=== PATIENT | male | born 1955 | race Caucasian/White ===

== ENCOUNTER 2016-11-27 05:12 | Inpatient (IN) | payer OTHER ==
[2016-10-28 10:17] VITALS: BMI 39.0
--- NOTE | 2016-10-28 10:53 | PAT Medication Instructions ---
Service Date October 28, 2016. Current Home Medication List Amlodipine (Norvasc), 5 MG PO QAM Aspirin (Aspirin Ec), 81 MG PO QAM Clopidogrel (Plavix), 75 MG PO QAM Hydrochlorothiazide (Hctz), 50 MG PO QAM Lisinopril (Zestril), 40 MG PO QAM Rosuvastatin Calcium (Rosuvastatin Calcium), 1 TAB PO QAM Medication Instructions For Your Scheduled Surgery - Check with surgeon/prescribing physician for instructions: Clopidogrel (Plavix), 75 MG PO QAM - Hold the following medications the morning of surgery: Lisinopril (Zestril), 40 MG PO QAM Hydrochlorothiazide (Hctz), 50 MG PO QAM - Take the following medications the morning of surgery with a sip of water: Rosuvastatin Calcium (Rosuvastatin Calcium), 1 TAB PO QAM Amlodipine (Norvasc), 5 MG PO QAM Aspirin (Aspirin Ec), 81 MG PO QAM (okay to continue per surgeon) If you have any questions please call us at [phone] (Shu Khoury PA-C) or [phone] or [phone]
[2016-10-28 11:16] LABS: BASO % 0.3 %; BASO ABS # 0.02 K/uL (0-0.2); COMPLETE YES; EOS % 0.6 %; HEMATOCRIT 50.7 % (42-52); IG% 0.3 %; LYMPH % 31.2 %; MEAN CELL VOLUME 87.3 fL (80-100); MEAN CORPUSCULAR HEMOGLOBIN 30.3 pg (25-34); MEAN CORPUSCULAR HGB CONC 34.7 g/dl (32-36); MEAN PLATELET VOLUME 9.4 fL (7.4-10.4); MONO % 13.6 %; PLATELET COUNT 180 K/uL (130-400); RED BLOOD COUNT 5.81 M/uL (4.7-6.1); WHITE BLOOD COUNT 6.41 K/uL (4.8-10.8)
[2016-10-28 11:26] LABS: INR 1.1 (0.9-1.1); PROTHROMBIN TIME (PATIENT) 11.7 SECONDS (9.0-12.0)
[2016-10-28 13:37] LABS: BLOOD UREA NITROGEN 17 mg/dl (7-18); BUN/CREATININE RATIO 20.1 (10-20); C-REACTIVE PROTEIN < 0.29 mg/dl (0-0.29); CALCIUM 9.3 mg/dl (8.5-10.1); CARBON DIOXIDE 28 mmol/L (21-32); CHLORIDE 103 mmol/L (98-107); CREATININE 0.86 mg/dl (0.60-1.40); GLUCOSE 74 mg/dl (70-99); SODIUM 140 mmol/L (136-145)
--- NOTE | 2016-11-21 21:31 | HISTORY & PHYSICAL EXAMINATION ---
DATE OF ADMISSION: 11/27/2016 CHIEF COMPLAINT: Right hip and leg pain. HISTORY OF PRESENT ILLNESS: The patient is a 61-year-old gentleman who is now a little over 8 months out from a left knee replacement. Left knee is doing pretty well. No pain, but a little on the stiff side but happy with that. He is becoming more and more debilitated by his right leg pain. He describes pain in his thigh, groin and entire leg area. The more he walks, the more it hurts. He limps and limps more as the day goes on. He has difficulty putting his shoes and socks on. X-rays show hip arthritis and patient would like to proceed with total hip replacement. PAST MEDICAL HISTORY: Significant for: 1. Hypertension. 2. Elevated cholesterol. 3. History of TIA 2 years ago, on Plavix. PAST SURGICAL HISTORY: Include knee replacement on 03/10/2016. ALLERGIES: None. CURRENT MEDICINES: Include: 1. Hydrochlorothiazide 50 mg a day. 2. Amlodipine 5 mg a day. 3. Plavix 75 mg a day. 4. Lisinopril 40 mg a day. 5. Baby aspirin 81 mg a day. SOCIAL HISTORY: A 61-year-old male. He is . He is a carmichael. He does not smoke. FAMILY HISTORY: Noncontributory. REVIEW OF SYSTEMS: Negative for diabetes. Denies any chest pain, shortness of breath. No history of DVT or PE. He does have a history of a TIA without any residual sequelae. He is on Plavix. PHYSICAL EXAMINATION: GENERAL: Reveals a healthy, pleasant middle-aged male. Fairly large gentleman. HEENT: Benign. NECK: Supple. No lymphadenopathy. LUNGS: Clear to auscultation. HEART: Has a regular rate and rhythm. ABDOMEN: Soft, nontender, nondistended. EXTREMITIES: Grossly neurovascularly intact except as follows: Examination of the right hip revealed patient to walks with a slight bit a limp on his right side. His hip is very stiff. He has got pain with any type of hip motion. With any hip motion, his pelvis rocks. He has got a small knee effusion on this side. Range of motion of his knee is 5-110. No instability. Negative straight leg raise. X-RAYS: X-rays of the right hip and knee reveal advanced right hip arthritis. He has got near complete loss of the superior joint space. He does have advanced medial compartment DJD of the knee as well. 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 I think the majority of symptoms are coming from his hip more so than his knee at this point. PLAN: We talked about treatment. He would like to proceed with hip replacement surgery. We are going to take him to the operating room and do a right total hip replacement. The risks and benefits of this procedure were explained to the patient including but not limited to DVT, PE, , infection, neurological injury, vascular injury, bleeding, pain, limited range of motion, stiffness, failure to relieve symptoms, incomplete relief of symptoms, need for further surgery in the future, fracture, leg length inequality, nerve palsy, and need for further surgery on his knee. The patient understands and desires to proceed. Informed consent was obtained. We did talk to him about holding his lisinopril the morning of surgery and the Plavix 1 week preop. We will use Plavix for DVT prophylaxis. I will see him back 2 weeks postop. As far as discharge plans, he is planning to be discharged to home using [facility] home health program. SHARRI
[~2016-11-27] VITALS: Ht 172.7 cm; Wt 116.3 kg
[2016-11-27] VITALS (24 sets, daily range): BP systolic 102–173; BP diastolic 66–97; PULSE 54–75; TEMP 36.3–37.3; O2SAT 93–99; Ht 172.7 cm; Wt 116.3 kg
[~2016-11-27 05:12] MED LIST: AMLO-110 PO; ASPI81TA28 PO; CLOP1TAB15 PO; HYDR50TA3 PO; LISI40TA PO; ROSU20TA22 PO
[2016-11-27] MEDS ORDERED: METOCLOPRAMIDE HCL 10 MG TAB PO SCH (06:00)
[2016-11-27] MEDS ORDERED: LACTATED RINGER'S 1000ML 1,000 ML IV SCH (06:00)
[2016-11-27] MEDS ORDERED: SCOPOLAMINE 1.5 MG TDSY TD SCH (06:00)
[2016-11-27] MEDS ORDERED: GABAPENTIN 300 MG CAP PO SCH (06:00)
[2016-11-27] MEDS ORDERED: ACETAMINOPHEN 500 MG TAB PO SCH (06:00)
[2016-11-27] MEDS ORDERED: FAMOTIDINE 20 MG TAB PO SCH (06:00)
[2016-11-27] MEDS ORDERED: LACTATED RINGER'S 1000ML 500 ML IV ONE (06:00)
[2016-11-27] MEDS ORDERED: LACTATED RINGER'S 1000ML IV SCH (06:00)
[2016-11-27] MEDS ORDERED: BACITRACIN 50000 UNIT VIAL ONE (06:32)
[2016-11-27] MEDS ORDERED: BUPIVACAINE/EPINEPHRINE 0.5% MPF 1:200,000 30 ML VIAL ONE (06:32)
[2016-11-27] MEDS ORDERED: MoRPHine SULFATE PF 1 MG/ML 10 ML AMP/VIAL ONE (06:38)
[2016-11-27] MEDS ORDERED: FENTANYL CITRATE INJ 50 MCG/1 ML 2 ML VIAL ONE (06:38)
[2016-11-27] MEDS ORDERED: MIDAZOLAM HCL 1 MG/ML 2ML VIAL ONE (06:38)
[2016-11-27] MEDS: TRANEXAMIC ACID INJ 1,000 MG in SODIUM CHLORIDE 0.9% 100ML 100 ML IV SCH ×2 (06:38→06:51)
[2016-11-27] MEDS ORDERED: BUPIVACAINE 0.5 % 5 MG/1 ML PF 10ML VIAL ONE (06:40)
--- NOTE | 2016-11-27 06:48 | History & Physical Bridge Note ---
H&P Re-Evaluation Bridge Note: I have examined the patient, reviewed the History & Physical and in the interval since the performance of the History & Physical I have noted the following changes of clinical significance: No changes noted
[2016-11-27] MEDS: CEFAZOLIN 2000 MG/60 ML D5W 60 ML IV SCH ×2 (06:53→07:33)
[2016-11-27] MEDS ORDERED: MEPERIDINE HCL 25 MG/ML CARP IV PRN (07:00)
[2016-11-27] MEDS ORDERED: NALOXONE HCL INJ 1 MG in SODIUM CHLORIDE 0.9% 1000ML 1,000 ML IV PRN (07:00)
[2016-11-27] MEDS ORDERED: SODIUM CHLORIDE 0.9% 1000ML 1,000 ML IV PRN (07:00)
[2016-11-27] MEDS ORDERED: NALOXONE HCL INJ 0.08 MG in SYRINGE 1.8 ML IV PRN (07:00)
[2016-11-27] MEDS ORDERED: DiphenhydrAMINE HCL 50 MG/ML VIAL IV PRN (07:00)
[2016-11-27] MEDS ORDERED: ATROPINE SULFATE 0.1 MG/ML 5ML SYR IV PRN (07:00)
[2016-11-27] MEDS ORDERED: NALOXONE HCL 0.4 MG/1 ML VIAL/CARP IV PRN (07:00)
[2016-11-27] MEDS ORDERED: ONDANSETRON INJ 2 MG/ML 2 ML VIAL IV PRN ×2 (07:00)
[2016-11-27] MEDS ORDERED: EpHEDrine SULFATE INJ 50 MG/ML AMP IV PRN ×2 (07:00)
[2016-11-27] MEDS ORDERED: NO NARCOTICS OR SEDATIVES SCH (07:00)
[2016-11-27] MEDS ORDERED: FENTANYL CITRATE INJ 50 MCG/1 ML 2 ML VIAL IV PRN (07:00)
[2016-11-27] MEDS ORDERED: NALBUPHINE HCL INJ 10 MG/ML AMP IV PRN (07:00)
[2016-11-27] MEDS ORDERED: LACTATED RINGER'S 1000ML 500 ML IV PRN (07:00)
[2016-11-27] MEDS ORDERED: MoRPHine SULFATE PF 1 MG/ML 10 ML AMP/VIAL EPI PRN (07:00)
[2016-11-27] MEDS ORDERED: PROPOFOL IV EMULSION 10 MG/ML 20 ML VIAL IV ONE (07:29)
[2016-11-27] MEDS ORDERED: PHENYLEPHRINE HCL INJ 10 MG/ML VIAL ONE (07:29)
[2016-11-27] MEDS ORDERED: EpHEDrine SULFATE 50MG/5ML SYR ONE (07:29)
--- NOTE | 2016-11-27 08:39 | [facility] Post Operative Brief Note ---
Immediate Operative Summary Operative Date Nov 27, 2016. Pre-Operative Diagnosis Right Hip Advanced Degenerative Joint Disease Post-Operative Diagnosis Right Hip Advanced Degenerative Joint Disease Procedure(s) Performed Right Total Hip Arthroplasty--Uncemented Surgeon Dr. Nolan Schedule [facility]anger Surgeon(s) WES Ruth Estimated Blood Loss 400 ml Findings Right Hip DJD Fluids (cc crystalloids) 2000 cc Specimens A. Right Femoral Head Drains None Anesthesia Spinal Complication(s) None Disposition Recovery Room / PACU
[2016-11-27] MEDS ORDERED: ALUMINUM/MAGNESIUM/SIMETH (MAALOX MAX) 30 ML UDC PO PRN (08:45)
[2016-11-27] MEDS ORDERED: BISACODYL 10 MG SUPP PR PRN (08:45)
[2016-11-27] MEDS ORDERED: TAMSULOSIN HCL 0.4 MG CAP PO PRN (08:45)
[2016-11-27] MEDS ORDERED: MAGNESIUM HYDROXIDE SUSP 30 ML UDC PO PRN (08:45)
[2016-11-27] MEDS ORDERED: SILVER SULFADIAZINE 1% CR 50 GM JAR EXT PRN (08:45)
[2016-11-27] MEDS ORDERED: CLOPIDOGREL BISULFATE 75 MG TAB PO SCH (09:00)
--- NOTE | 2016-11-27 09:18 | OPERATIVE REPORT ---
DATE OF OPERATION: 11/27/2016 PREOPERATIVE DIAGNOSIS: Right hip degenerative joint disease. POSTOPERATIVE DIAGNOSIS: Same. PROCEDURE PERFORMED: Right uncemented ceramic on highly cross-linked polyethylene total hip arthroplasty. SURGEON: Dr. Mateo Nolan. SERVICE OFFICER: Rubens Horowitz PA-C. COMPLICATIONS: None. ESTIMATED BLOOD LOSS: 400 mL. FLUID REPLACEMENT: 2000 mL crystalloid fluid replacement. ANESTHESIA: Spinal. DRAINS: None. SPECIMENS: Right femoral head sent for pathology. OPERATIVE INDICATIONS: The patient is a 61-year-old gentleman with a long history of multiple joint aches and pains. He underwent a left knee replacement back in February. Since then he has been more disabled by groin and thigh pain on his right side. He also has chronic back pain as well as advanced right knee arthritis. Interestingly he does not have much pain from his knee arthritis. It was felt that a significant amount of pain was coming from his hip. He elected to proceed with total hip arthroplasty. OPERATIVE FINDINGS: Operative findings revealed advanced right hip DJD. He had pretty extensive grade 4 changes of the femoral head and acetabulum. Small hip joint effusion. He had deficiency of the anterior wall of the acetabulum. OPERATIVE IMPLANTS: Operative implants consisted of: 1. A Biomet G7 size 56 mm acetabular shell. 2. An apex hole eliminator. 3. A 6.5 cancellous acetabular screws, 1 at 35 mm in length and 1 of 30 mm in length. 4. Highly cross-linked polyethylene liner with a 56 mm outer diameter, 36 mm inner diameter with zaragoza placed inferior and posterior. 5. A DePuy size 13.5 small stature AML femoral stem. 6. A +5/36 mm ceramic articular ball. OPERATIVE PROCEDURE: The patient taken to the operating room, identified and placed on the operating table in supine position. All contact areas were appropriately padded. IV antibiotics were provided by the anesthesia team. A spinal anesthetic had been implemented in the holding area. Rm catheter was placed in sterile fashion. The patient was then placed in the left lateral decubitus position. An axillary roll was placed. Stlberg hip positioner was used for positioning. Right hip and leg were then prepped and draped in the usual sterile fashion. A posterolateral approach to the right hip was then performed through a curvilinear incision centered over the greater trochanter. Sharp dissection was carried down through the subcutaneous tissue down to the level of the IT band and gluteal fascia. The IT band and gluteal fascia were then incised longitudinally in line with skin incision. The underlying greater trochanteric bursa was excised. The piriformis and external rotators were tagged and taken off the posterior aspect of the femur. Great care was taken throughout the procedure to protect the sciatic nerve at all times. The hip was internally rotated and dislocated. Femoral neck osteotomy cut was made with the final cut 9 mm above the lesser trochanter. Femoral head was removed and sent for pathology. The femur was retracted anteriorly. Attention was then drawn to the acetabulum. The acetabulum labrum was excised. The pulvinar fat was excised. He did have some deficiency of the anterior wall of the acetabulum which made retraction a little bit difficult. The reaming of the acetabulum was then performed beginning with a size 49 progressing up to 55. A 56 mm Biomet G7 acetabular shell was then placed in about 40 degrees of lateral opening and 20 degrees of anteversion. It was fixed with two 6.5 cancellous acetabular screws. A trial liner was placed. Attention was then drawn to the femur. The proximal femur was entered with a cookie cutter followed by canal finder and lateralizing reamer. Sequential reaming of the femur was then performed beginning with a size 10 and progressing up to a 13. We got pretty good chatter at 13. We broached beginning with a size 10.5 small and progressing up to 13.5 small. His cancellous bone with very strong and supported. It was ensured that I could get the large broach in so we elected to stick with a small. We then trialed the hip. The +5 articular ball provided full stability in full extension and external rotation and flexion to 90 degrees, internal rotation to [address] a zaragoza very inferior and posterior to maximize stability in flexion. Attention was then drawn toward placement of permanent components. All trial components were removed. An apex hole eliminator was placed. A highly cross-linked polyethylene liner with a zaragoza placed inferior and posterior were placed. A 13.5 small stature AML femoral stem was placed. We got a good 6-7 cm of scratch fit. A +5/36 mm ceramic articular ball was placed. Hip was located and once again found to be stable. The wound was irrigated with copious amounts of pulsatile lavage solution. I did inject locally with 60 mL of 0.5% Marcaine with epinephrine. The posterior capsule and external rotators were repaired through drill holes in the posterior trochanter with #2 Ti-Cron suture. The IT band and gluteal fascia were then closed with #1 PDS suture in running fashion. The subcutaneous tissues were then closed in 2 layers with the deep layer #1 Vicryl suture and subcutaneous tissues with 2-0 Dexon suture in a buried interrupted fashion. The skin was closed with skin ronna. Leg was then cleaned and dried and a sterile dressing of Xeroform, 4 x 4, sterile ABD pad and foam tape was applied. The patient then transferred to the recovery room in stable condition. The patient tolerated the procedure well with no complications. All needle and sponge counts were correct at the end of the operation. I attest to the content of the Intraoperative Record and any orders documented therein. Any exception s are noted below.
--- NOTE | 2016-11-27 09:31 | Anesthesiology Progress Note ---
Anesthesia Post Op Note Date & Time Nov 27, 2016 at 09:30 Vital Signs Pain Intensity: 0 Vital Signs Past 12 Hours Date Time Temp Pulse Resp B/P (MAP) Pulse Ox O2 Delivery O2 Flow Rate FiO2 11/27/16 09:05 72 17 100 11/27/16 09:05 36.9 70 17 11/27/16 09:02 124/69 11/27/16 09:00 62 16 100 11/27/16 09:00 61 16 11/27/16 08:57 128/61 11/27/16 08:55 65 15 99 11/27/16 08:55 65 15 11/27/16 08:52 112/68 11/27/16 08:50 65 18 100 11/27/16 08:50 65 18 11/27/16 08:47 125/70 11/27/16 08:45 72 21 11/27/16 08:45 72 21 98 11/27/16 08:44 124/68 11/27/16 08:35 36.4 78 16 120/65 98 Mask 3 11/27/16 05:48 37.3 59 18 173/97 96 Room Air Notes Mental Status: alert / awake / arousable, participated in evaluation Pt Amnestic to Procedure: Yes Nausea / Vomiting: adequately controlled Pain: adequately controlled Airway Patency, RR, SpO2: stable & adequate BP & HR: stable & adequate Hydration State: stable & adequate Neuraxial Anesthesia: was administered, sensory block is resolving Anesthetic Complications: no major complications apparent
--- NOTE | 2016-11-27 09:43 | DIAGNOSTIC IMAGING REPORT ---
AP PELVIS AND RIGHT HIP 3 VIEWS CLINICAL HISTORY: Degenerative arthritis. Postoperative study COMPARISON STUDY: No previous studies for comparison. FINDINGS: There are postsurgical changes of a total right hip arthroplasty. No acute fractures or dislocations are visualized. Overlying skin ronna are evident. Air within soft tissues is consistent with recent surgery. IMPRESSION: Postsurgical changes of a total right hip arthroplasty. Electronically signed by: Shalom Ames M.D. 11/27/2016 9:41 AM Dictated Date/Time: 11/27/2016 9:41 AM
[2016-11-27] MEDS ORDERED: LISINOPRIL 40 MG TAB PO SCH (11:30)
[2016-11-27] MEDS: D5W AND 1/2NSS + 20MEQ KCL 1,000 ML IV SCH ×2 (11:32→17:57)
[2016-11-27] MEDS: ROSUVASTATIN CALCIUM 20 MG TAB PO SCH (13:39)
[2016-11-27] MEDS: ASPIRIN 81 MG ECTAB PO SCH (13:39)
[2016-11-27] MEDS: DOCUSATE SODIUM 100 MG CAP PO SCH ×2 (13:40→20:51)
[2016-11-27] MEDS: MULTIVITAMIN TAB PO SCH (13:41)
[2016-11-27] MEDS: AMLODIPINE BESYLATE 5 MG TAB PO SCH (13:41)
[2016-11-27] MEDS: KETOROLAC TROMETHAMINE 30 MG/ML VIAL IV. SCH ×2 (13:43→17:57)
[2016-11-27] MEDS: FERROUS GLUCONATE 324 MG TAB PO SCH ×2 (13:43→17:56)
[2016-11-27] MEDS: HYDROCHLOROTHIAZIDE 50 MG TAB PO SCH (13:44)
[2016-11-27] MEDS: ACETAMINOPHEN 500 MG TAB PO SCH ×2 (13:46→21:43)
[2016-11-27] MEDS: PANTOprazole SOD 40 MG TAB PO SCH (13:48)
--- NOTE | 2016-11-27 14:00 | PROGRESS NOTE ---
DATE: 11/27/2016 SUBJECTIVE: A 61-year-old gentleman postop from a right total hip replacement. He is doing well. Not having any pain yet. No chest pain or shortness of breath. Not feeling dizzy or lightheaded. OBJECTIVE: VITAL SIGNS: Temperature 36.6. Vital signs stable. GENERAL: Reveals a pleasant, middle-aged male. He is sitting up in bed, looks comfortable. LUNGS: Clear to auscultation. HEART: Has regular rate and rhythm. ABDOMEN: Soft, nontender, nondistended. EXTREMITIES: Grossly neurovascularly intact except as follows: Examination of the right leg reveals the leg to be well aligned. Dressing is clean, dry and intact. Thigh is soft and supple. His hip is located. He is neurologically intact. He can dorsiflex and plantarflex his foot appropriately. X-RAYS: X-rays of the right hip from recovery room reviewed. It shows a right uncemented total hip arthroplasty. Components looked to be in good position. No signs of problems. ASSESSMENT: A 61-year-old gentleman postop from a right total hip replacement, doing well. His pain is controlled. Hip is located. He is neurologically intact. PLAN: 1. DVT prophylaxis including thigh-high TEDs, SCDs, and aspirin twice a day. 2. PT/OT. Weightbearing as tolerated. Right total knee protocol. 3. Pain control. Doing well with current pain regimen. 4. IV antibiotics x24 hours. 5. Disposition: Plan to discharge to home with some home health once adequately recovered.
[2016-11-27] MEDS: CHECK SCOPOLAMINE PATCH PLACEMENT SCH (15:30)
[2016-11-27] MEDS: CEFAZOLIN IV 2,000 MG in DEXTROSE 5% 50ML 50 ML IV SCH (15:37)
[2016-11-28] VITALS (11 sets, daily range): BP systolic 99–124; BP diastolic 62–81; PULSE 32–69; TEMP 36.5–36.8; O2SAT 96–99
[2016-11-28] MEDS: KETOROLAC TROMETHAMINE 30 MG/ML VIAL IV. SCH ×2 (00:14→05:45)
[2016-11-28] MEDS: CEFAZOLIN IV 2,000 MG in DEXTROSE 5% 50ML 50 ML IV SCH (00:14)
[2016-11-28] MEDS: D5W AND 1/2NSS + 20MEQ KCL 1,000 ML IV SCH ×2 (00:15→08:53)
[2016-11-28] MEDS: CHECK SCOPOLAMINE PATCH PLACEMENT SCH ×4 (00:15→23:53)
[2016-11-28] MEDS ORDERED: MoRPHine SULFATE 2 MG/ML CARP IV PRN (01:00)
[2016-11-28] MEDS ORDERED: METOCLOPRAMIDE HCL INJ 5 MG/ML 2 ML VIAL IV PRN (01:00)
[2016-11-28] MEDS ORDERED: DiphenhydrAMINE HCL 50 MG/ML VIAL IV PRN (01:00)
[2016-11-28] MEDS ORDERED: DC INTRASPINAL MORPHINE ONE (01:00)
[2016-11-28] MEDS ORDERED: ZOLPIDEM TARTRATE 5 MG TAB PO PRN (01:00)
[2016-11-28] MEDS: ACETAMINOPHEN 500 MG TAB PO SCH ×3 (05:46→21:36)
[2016-11-28 05:54] LABS: BASO % 0.2 %; BASO ABS # 0.02 K/uL (0-0.2); COMPLETE YES; EOS % 0.7 %; HEMATOCRIT 34.7 % (42-52); IG% 0.4 %; LYMPH % 18.1 %; LYMPH ABS # 1.48 K/uL (1.2-3.4); MEAN CELL VOLUME 89.2 fL (80-100); MEAN CORPUSCULAR HEMOGLOBIN 30.1 pg (25-34); MEAN CORPUSCULAR HGB CONC 33.7 g/dl (32-36); MEAN PLATELET VOLUME 9.3 fL (7.4-10.4); MONO % 13.6 %; PLATELET COUNT 124 K/uL (130-400); RED BLOOD COUNT 3.89 M/uL (4.7-6.1); WHITE BLOOD COUNT 8.17 K/uL (4.8-10.8)
[2016-11-28 06:23] LABS: BUN/CREATININE RATIO 20.9 (10-20); CALCIUM 7.4 mg/dl (8.5-10.1); CREATININE 1.3 mg/dl (0.60-1.40); POTASSIUM 3.6 mmol/L (3.5-5.1)
[2016-11-28] MEDS ORDERED: OXYC-57 PO (08:19)
--- NOTE | 2016-11-28 08:21 | Discharge Instructions ---
Discharge Instructions Date of Service Nov 28, 2016. Admission Reason for Admission: Right Hip Degenerative Joint Disease Discharge Discharge Diagnosis / Problem: Right Hip Replacement Discharge Goals Goal(s): Decrease discomfort, Improve function, Increase independence, Improve disease control, Therapeutic intervention Activity Recommendations Activity Limitations: per Instructions/Follow-up section (Total Hip PRecautions ) Weightbearing Status: Right weightbearing . Instructions / Follow-Up Instructions / Follow-Up ACTIVITY RECOMMENDATIONS: Physical Therapy: * Aggressive physical therapy is not usually needed. You will learn to take care of yourself safely and walk. * Follow the "Hip Precautions Instructions." * In some cases, the social worker school at the hospital will arrange to have a therapist come to your house for the first couple of weeks to help you learn these skills. * You need to practice on your own or with the help of a family member as needed. * When you learn these skills, most of the therapy can be done on your own. Home Exercise: * You were shown a series of exercises in the hospital. Do these exercises three to four times each day including the exercises you were shown in physical therapy. Walking: * Get up and walk several times each day. For the first four weeks, try not to stand or walk for more than one hour at a time. If you do stand or walk for more than one hour, you will not hurt anything, but your leg will likely swell. * As you feel comfortable, you may change from the walker or crutches to a cane and then to independent walking. MEDICATIONS: New Medicine: * You will likely be taking one or more of these medicines: 1. Percocet - Take, as directed, when you need it, every four to six hours to control your pain. 2. Plavix - Thins your blood to lessen the chance of forming a blood clot. * The most common side effects of pain medicine and iron are nausea and constipation. If nausea or constipation is too much of a problem or if you have any questions about your new medicines or doses, call [facility] at . We will try to help you manage these issues. VERY IMPORTANT TO READ AND REVIEW" Pain: * The immediate post-operative period after hip replacement surgery is often quite painful. * You are given a prescription for pain medicine. You should take it, as directed, when you need it, especially before physical therapy and before going to bed. Pain that interferes with sleep is very common and can last several months. * You will likely need pain medicine for the first two to four weeks. It will not stop all of the pain. The pain will lessen and as you feel better, you may change to milder pain medicine such as Tylenol. * The most common side effects of pain medicine are nausea and constipation, so don't take more than you need. SPECIAL CARE INSTRUCTIONS: TEDs/Elastic Stockings: * The white elastic stockings help limit swelling and prevent blood clots from forming in your legs. The more you wear them, the more they work. * Wear them for six weeks. Prevention of Infection: * Take antibiotics one hour before any dental cleaning, dental work, urological procedure, gastrointestinal procedure or any invasive surgery in order to prevent your new joint from getting infected. * You may get the antibiotics from the doctor performing the procedure or you may call our office at before and we will call in a prescription to the pharmacy of your choice. Things to Watch For: * Drainage from the incision site that occurs more than one week after your surgery. * Severely increased leg pain or swelling. * Increased redness at the incision site. * Fever above 102 degrees Fahrenheit. * Unusual chest pain or shortness of breath. * Unusual pain or burning with urination. Call [facility] at with any of the above problems or if you have any questions about your medicines or recovery. FOLLOW UP VISIT: Make an appointment to see your doctor for approximately two weeks after surgery for a progress check and staple removal by calling the office at . Current Hospital Diet Patient's current hospital diet: Regular Diet Discharge Diet Recommended Diet: Regular Diet Procedures Procedures Performed: Right Total Hip Arthroplasty--Uncemented Pending Studies Studies pending at discharge: no Medical Emergencies . Who to Call and When: Medical Emergencies: If at any time you feel your situation is an emergency, please call [phone] immediately. . Non-Emergent Contact Non-Emergency issues call your: Surgeon . "Provider Documentation" section prepared by Mateo Nolan. . VTE Core Measure Inpt VTE Proph given/why not?: Other Anticoagulation, T.E.D. Stockings, SCD's
--- NOTE | 2016-11-28 08:36 | PROGRESS NOTE ---
DATE: 11/28/2016 SUBJECTIVE: A 61-year-old gentleman postop day #1 from right total hip replacement. He is doing well. He denies any significant pain. No chest pain or shortness of breath. Not feeling dizzy or lightheaded. OBJECTIVE: VITAL SIGNS: Temperature 36.5. Vital signs stable. GENERAL: Reveals a pleasant, middle-aged male. He is sitting up in bed, looks pretty comfortable. LUNGS: Clear to auscultation. HEART: Has a regular rate and rhythm. ABDOMEN: Soft, nontender, nondistended. EXTREMITIES: Grossly neurovascularly intact except as follows: Examination of the right leg reveals the leg to be well aligned. Dressing is clean, dry and intact. Thigh is soft and supple. He can dorsiflex and plantarflex his foot appropriately. He is neurologically intact. LABORATORY DATA: Hemoglobin 11.7, hematocrit 34.7. Electrolytes are stable. ASSESSMENT: A 61-year-old gentleman postop day #1 from a right total hip replacement, doing pretty well. His pain is controlled. Hip is located. He is neurologically intact. PLAN: 1. DVT prophylaxis including thigh-high TEDs, SCDs, and he is back on his Plavix starting today. We will also put him on a baby aspirin which he was on previously. 2. PT/OT. Weightbearing as tolerated. Right total hip protocol. 3. Pain control. He is doing quite well for current pain regimen. 4. Disposition: Plan to discharge to home with some home health once adequately recovered.
[2016-11-28] MEDS: PANTOprazole SOD 40 MG TAB PO SCH (08:53)
[2016-11-28] MEDS: FERROUS GLUCONATE 324 MG TAB PO SCH ×3 (08:55→17:48)
[2016-11-28] MEDS: ROSUVASTATIN CALCIUM 20 MG TAB PO SCH (08:56)
[2016-11-28] MEDS: CLOPIDOGREL BISULFATE 75 MG TAB PO SCH (08:56)
[2016-11-28] MEDS: ASPIRIN 81 MG ECTAB PO SCH (08:56)
[2016-11-28] MEDS: MULTIVITAMIN TAB PO SCH (08:57)
[2016-11-28] MEDS: DOCUSATE SODIUM 100 MG CAP PO SCH ×2 (08:57→20:41)
[2016-11-28] MEDS: TAPENTADOL ER 50 MG TABCR PO SCH ×2 (09:02→20:41)
[2016-11-28] MEDS ORDERED: NURSING VERBAL MED ORDER ONE (10:00)
[2016-11-28] MEDS: AMLODIPINE BESYLATE 5 MG TAB PO SCH (10:06)
[2016-11-28] MEDS: HYDROCHLOROTHIAZIDE 50 MG TAB PO SCH (10:06)
[2016-11-28] MEDS: OXYCODONE HCL IR 5 MG TAB (IMMEDIATE RELEASE) PO PRN (20:06)
[2016-11-29] MEDS: ACETAMINOPHEN 500 MG TAB PO SCH (05:54)
[2016-11-29 06:06] VITALS: BP 144/82; PULSE 73; TEMP 36.6; O2SAT 98
[2016-11-29] MEDS: AMLODIPINE BESYLATE 5 MG TAB PO SCH (07:28)
[2016-11-29] MEDS: PANTOprazole SOD 40 MG TAB PO SCH (07:29)
[2016-11-29] MEDS: FERROUS GLUCONATE 324 MG TAB PO SCH (07:29)
[2016-11-29] MEDS: ASPIRIN 81 MG ECTAB PO SCH (07:29)
[2016-11-29] MEDS: DOCUSATE SODIUM 100 MG CAP PO SCH (07:29)
[2016-11-29] MEDS: MULTIVITAMIN TAB PO SCH (07:29)
[2016-11-29] MEDS: CLOPIDOGREL BISULFATE 75 MG TAB PO SCH (07:29)
[2016-11-29] MEDS: CHECK SCOPOLAMINE PATCH PLACEMENT SCH (07:30)
[2016-11-29] MEDS: HYDROCHLOROTHIAZIDE 50 MG TAB PO SCH (07:30)
[2016-11-29] MEDS: ROSUVASTATIN CALCIUM 20 MG TAB PO SCH (07:30)
[2016-11-29] MEDS: TAPENTADOL ER 50 MG TABCR PO SCH (07:32)
--- NOTE | 2016-11-29 08:23 | PROGRESS NOTE ---
DATE: 11/29/2016 SUBJECTIVE: A 61-year-old gentleman postop day 2 from a right total hip replacement. He is doing pretty well. He reports minimal pain. No chest pain or shortness of breath. Not feeling dizzy or lightheaded. OBJECTIVE: VITAL SIGNS: Temperature is 36.6. Vital signs stable. GENERAL: Shows a pleasant, middle-aged male. He is sitting up at his bedside chair, looks pretty comfortable. LUNGS: Clear to auscultation. HEART: Regular rate and rhythm. ABDOMEN: Soft, nontender, nondistended. EXTREMITIES: Grossly neurovascularly intact except as follows: Examination of the right leg reveals the dressing to be clean, dry and intact. Hip is located. He is neurologically intact. ASSESSMENT: A 61-year-old gentleman postop day 2 from right total hip replacement, doing well. His pain is controlled. His blood pressure is back up a bit and we will put him back on his lisinopril. PLAN: 1. DVT prophylaxis including thigh-high TEDs, SCDs, and aspirin twice a day. 2. PT/OT. Weightbearing as tolerated. Right total hip protocol. 3. Pain control, doing pretty well on current pain regimen. 4. Disposition: Plan to discharge to home with some home health later today.
[2016-11-29] MEDS ORDERED: LISINOPRIL 40 MG TAB PO SCH (09:00)
[2016-11-29 09:34] VITALS: BP 144/82; PULSE 73; TEMP 36.6; O2SAT 98
[2016-11-29] MEDS: OXYCODONE HCL IR 5 MG TAB (IMMEDIATE RELEASE) PO PRN (10:05)
--- NOTE | 2016-12-04 14:49 | DISCHARGE SUMMARY ---
ADMITTING PHYSICIAN AND SURGEON: Dr. Nolan. ADMITTING DIAGNOSIS: Right hip degenerative joint disease. SURGERY PERFORMED: Right total hip arthroplasty. SECONDARY DIAGNOSES: Include hypertension, elevated cholesterol, transient ischemic attack. CONSULTS: None obtained. HISTORY AND PHYSICAL EXAMINATION: Well documented in the patient's chart. HOSPITAL COURSE: The patient was admitted on 11/27/2016, underwent total hip arthroplasty, tolerated the procedure well. There were no complications. He was transferred to the PACU postoperatively and later to the orthopedic floor for further care. He was given Ancef for antibiotic prophylaxis, SHANNA stockings, SCDs, Plavix and aspirin for DVT prophylaxis. Hemoglobin, hematocrit and vital signs were monitored during his hospital stay and remained stable. He developed some mild postoperative anemia, did not require any blood transfusions. There were no complications. By postoperative day 2, he was tolerating a general diet. Pain was controlled with oral pain medicine. He was participating in physical therapy and had no signs or symptoms of deep vein thrombosis. On postop day 2, he was discharged home. He was given printed discharge instructions, including new prescriptions for Percocet. Continue his home medications, continue physical therapy, weightbearing as tolerated, SHANNA stockings, total hip precautions and follow up in 10-12 days or sooner if there are any problems or concerns.
== END 2016-11-29 10:35 | disposition home or self-care (01) | DRG 470 ==
LOC: C.ACU 05:12 → C.3E 06:38 → ENRESERV 09:26
PROVIDERS: ADMIT Orthopaedic Surgery Sports Medicine; ATTEND Orthopaedic Surgery Sports Medicine
PROC: 0SR904A Replacement of Right Hip Joint with Ceramic on Polyethylene Synthetic Substitute, Uncemented, Open Approach (ICD-10-PCS; principal; 2016-11-27 07:00)
DX: M16.11 Unilateral primary osteoarthritis, right hip (principal); M25.451 Effusion, right hip; M17.11 Unilateral primary osteoarthritis, right knee; M25.461 Effusion, right knee; I10 Essential (primary) hypertension; E78.00 Pure hypercholesterolemia, unspecified; G89.29 Other chronic pain; M54.9 Dorsalgia, unspecified; E66.9 Obesity, unspecified; Z68.39 Body mass index [BMI] 39.0-39.9, adult; Z79.82 Long term (current) use of aspirin; Z86.73 Personal history of transient ischemic attack (TIA), and cerebral infarction without residual deficits; Z96.652 Presence of left artificial knee joint; Z79.02 Long term (current) use of antithrombotics/antiplatelets; Z79.899 Other long term (current) drug therapy